=== PATIENT | female | born 1985 | race African-American/Black ===

== ENCOUNTER 2017-01-29 19:07 | Emergency (ER) | payer SELFPAY ==
[~2017-01-29] VITALS: Ht 172.7 cm; Wt 72.6 kg
[~2017-01-29 19:07] MED LIST: ALPR1TAB2 PO; CITA20TA15 PO; DIAZ5TAB7 PO; HYDR-4452 PO; IMI25 PO; METO-460 PO; ONDA4TAB PO; PHE25S RC; RANI-287 PO; SIMBICORT; TOPI50TA PO
[2017-01-29 19:22] VITALS: BP 114/68
--- NOTE | 2017-01-29 19:26 | NUR ---
EKG COMPLETED BY RIGO AND SHOWED TO TOMAS ENGLE
--- NOTE | 2017-01-29 20:28 | NUR ---
PATIENT LEFT WITHOUT BEING SEEN BY DR. ENGLE. NO FURTHER CARE PROVIDED FOR PATIENT.
== END 2017-01-29 20:28 | disposition left against medical advice (07) ==
LOC: MED 19:07
DX: R07.89 Other chest pain (principal); Z53.21 Procedure and treatment not carried out due to patient leaving prior to being seen by health care provider

== ENCOUNTER 2017-12-13 11:51 | Emergency (ER) | payer SELFPAY ==
[~2017-12-13] VITALS: Ht 172.7 cm; Wt 83.9 kg
[~2017-12-13 11:51] MED LIST changes: +ACET-787 PO; -HYDR-4452 PO
--- NOTE | 2017-12-13 12:15 | NUR ---
PT AMBULATED TO ER BED 1.
[2017-12-13 12:16] VITALS: BP 128/88
--- NOTE | 2017-12-13 12:25 | NUR ---
32/F PRESENT TO ER C/O EPIGASTRIC PAIN x 2 DAYS. PT HAS N/V BUT DENIES DIARRHEA OR CONSTIPATION. PATIENT STATES SHE HAS BEEN VOMITING THE LAST 2 DAYS AND CANNOT TAKE HER PO MEDS. AAOx4, PERRLA, BREATHING EVEN AND EFFORTLESS. ERMD NOTIFIED OF PATIENT STATUS.
[2017-12-13] MEDS ORDERED: NACL 0.9% 1,000 ML IV SCH ×2 (13:01)
[2017-12-13] MEDS ORDERED: KETOROLAC 30 MG/ML VIAL IVP ONE (13:05)
[2017-12-13] MEDS ORDERED: ONDANSETRON 4 MG/2 ML VIAL IVP ONE (13:05)
[2017-12-13] MEDS ORDERED: PROMETHAZINE 25 MG/ML VIAL IM ONE (13:05)
[2017-12-13] MEDS ORDERED: PIPERACILLIN/TAZOBACTAM 3.375 GM in DEXT 5% MINI-BAG PLUS 50 ML IV ONE (13:05)
[2017-12-13] MEDS ORDERED: PIPERACILLIN/TAZOBACTAM 3.375 GM VIAL IV ONE (13:16)
[2017-12-13] MEDS ORDERED: HALOPERIDOL IM 5 MG/ML VIAL IM ONE (13:30)
[2017-12-13 13:31] LABS: BASOPHILS # (AUTO) 0.1 K/uL (0.00-0.22); BASOPHILS % (AUTO) 0.6 % (0.0-2.0); EOSINOPHILS # (AUTO) 0.1 K/uL (0-0.4); EOSINOPHILS % (AUTO) 0.9 % (0.0-4.0); LYMPHOCYTES # (AUTO) 1.4 K/uL (2.5-16.5); LYMPHOCYTES % (AUTO) 12.4 % (20.5-51.1); MEAN CORPUSCULAR HEMOGLOBIN 27 pg (27-31); MEAN CORPUSCULAR HGB CONC 32 g/dL (33-37); MEAN CORPUSCULAR VOLUME 85.7 fL (80-94); MONOCYTES # (AUTO) 0.7 K/uL (0.8-1.0); NEUTROPHILS # (AUTO) 9.4 K/uL (1.8-7.7); NEUTROPHILS % (AUTO) 80.1 % (42.2-75.2); PLATELET COUNT (AUTO) 355 K/uL (140-450); RED BLOOD CELL COUNT(AUTO) 4.43 MIL/uL (4.20-5.40); RED CELL DISTRIBUTION WIDTH 19.5 % (11.6-13.7); WHITE BLOOD COUNT (AUTO) 11.7 K/uL (4.8-10.8)
--- NOTE | 2017-12-13 13:49 | NUR ---
ESCORTED DR. OLIVER INTO ROOM TO DISCUSS PTS ALLERGIES WITH HER BECAUSE SHE IS REQUESTING PAIN MEDICATION AND CODEINE IS LISTED IN THE COMPUTER FOR HER ALLERGIES. DR. OLIVER ASKED PT, "ARE YOU ALLERGIC TO CODEINE?" PT STATED, "NO, I HAVE NO IDEA WHY THEY HAVE THAT LISTED, THEY ALWAYS GIVE ME MORPHINE OR DILAUDID FOR PAIN." DR. OLIVER EDUCATED PT ON MEDICATION, RISKS, SIDE EFFECTS. PT INSISTENT SHE IS NOT ALLERGIC AND VERBALIZED UNDERSTANDING
[2017-12-13] MEDS ORDERED: MORPHINE SULFATE 2 MG/ML SYR IVP ONE (13:50)
--- NOTE | 2017-12-13 13:51 | NUR ---
Patient being evaluated by physician at bedside.
[2017-12-13 13:59] LABS: PROTHROMBIN TIME 10.1 secs (10.8-13.4)
[2017-12-13 14:09] LABS: ANION GAP 18.2 (8-16); CARBON DIOXIDE 21.7 mmol/L (21-32); CHLORIDE 103 mmol/L (98-107); GLUCOSE 103 mg/dL (74-106); POTASSIUM 3.9 mmol/L (3.5-5.1); SODIUM SERUM 139 mmol/L (136-145)
[2017-12-13 14:10] LABS: ALBUMIN 3.9 g/dL (3.4-5.0); AMYLASE 101 U/L (25-115); CREATININE 0.7 mg/dL (0.6-1.3); GFR ARICAN-AMERICAN 125 mL/min (>90); LIPASE 171 U/L (73-393); TOTAL BILIRUBIN 0.6 mg/dL (0.0-1.0); UREA NITROGEN, BLOOD 12 mg/dL (7-18)
[2017-12-13 14:11] LABS: ACETAMINOPHEN < 0.5 ug/ml (10-30); SALICYLATE < 2.8 mg/dL (2.8-20.0)
[2017-12-13 14:24] LABS: ASPARTATE AMINOTRANSFERASE 25 U/L (15-37)
--- NOTE | 2017-12-13 14:55 | NUR ---
PT AMBULATED TO RESETROOM WITH STEADY GAIT.
--- NOTE | 2017-12-13 15:07 | NUR ---
PT RETURNED FROM RESTROOM WITH STEADY GAIT.
[2017-12-13 15:20] LABS: BARBITURATE, URINE NEG. ng/ml (NEG <=200); BENZODIAZEPINE, URINE NEG. ng/mL (NEG <=200); CANNABINOID, URINE POS. ng/mL (NEG <=50); COCAINE, URINE NEG. ng/mL (NEG <=300); OPIATE, URINE POS. ng/mL (NEG <=2000); PHENCYCLIDINE SCREEN,URINE NEG. ng/mL (NEG <=25)
[2017-12-13 15:33] LABS: APPEARANCE,URINE CLEAR (CLEAR); BILIRUBIN,URINE NEGATIVE (NEGATIVE); BLOOD, URINE NEGATIVE (NEGATIVE); COLOR,URINE YELLOW (YELLOW); LEUKOCYTE ESTERASE ,URINE NEGATIVE (NEGATIVE); NITRITE, URINE NEGATIVE (NEGATIVE); PH,URINE 7.5 (5.0-9.0); UGLUCOSE NEGATIVE (NEGATIVE)
[2017-12-13 16:13] LABS: RBC,URINE 0-5 (RARE) /HPF (0-5); WBC,URINE 0-5 (RARE) /HPF (0-5)
--- NOTE | 2017-12-13 17:14 | NUR ---
PT RESTING. VSS. ERMD NOTIFIED OF PATIENT STATUS.
[2017-12-13] MEDS ORDERED: MORPHINE SULFATE 4 MG/ML SYR IVP ONE (18:55)
--- NOTE | 2017-12-13 19:13 | NUR ---
Pt report given to CANDIDA WELCH. Transfer of care at this time.
--- NOTE | 2017-12-13 19:15 | NUR ---
PT SLEEPING IN BED, VITALS STABLE.
--- NOTE | 2017-12-13 19:21 | NUR ---
Dr. Ryan evaluating patient at bedside.
--- NOTE | 2017-12-13 19:22 | NUR ---
PT WAS NOTIFIED REGARDING TRANSFER TO [facility] BY . CONSENT SIGNED. VITALS STABLE.
[2017-12-13] MEDS ORDERED: HYDROmorphone 1 MG/ML AMP IVP ONE (19:50)
[2017-12-13] MEDS ORDERED: hydrALAZINE 20 MG/ML VIAL IVP ONE (20:25)
--- NOTE | 2017-12-13 20:30 | NUR ---
Patient to be transferred to [facility]. Is being transferred due to CEREBRAL BLEED. Receiving facility has accepting physician and available space. ER physician has signed transfer form. Patient or responsible democrat has agreed to transfer and signed form. Patient belongings inventoried and will be sent with patient. Copy of nursing notes, lab reports, EKG, Physicians Orders and X-rays to be sent with patient. Report called to ER CHARGE NURSE at receiving facility. [facility] ambulance service has been called for transfer. ETA is 2030.
[2017-12-13 20:33] VITALS: BP 156/101
--- NOTE | 2017-12-13 20:37 | NUR ---
PT TAKEN BY [facility] TRANSPORT TO [facility] ER
--- NOTE | 2017-12-13 20:44 | NUR ---
GAVE REPORT TO [facility] ER CHARGE NURSE.
== END 2017-12-13 20:37 | disposition short-term general hospital (02) ==
LOC: MED 11:51
DX: R11.2 Nausea with vomiting, unspecified (principal); R10.84 Generalized abdominal pain; R50.9 Fever, unspecified; Z85.841 Personal history of malignant neoplasm of brain; Z88.5 Allergy status to narcotic agent; Z79.899 Other long term (current) drug therapy
CPT/HCPCS: 36415; 70450; 74176; 80053; 80305; 81001; 81025; 82150; 83605; 83690; 84703; 85025; 85610; 85730; 87040; 87086; 96361; 96365; 96372; 96375; 96376; 99285; G0480; G0482; J0360; J1170; J1630; J1885; J2270; J2405; J2543; J2550; J7030